=== PATIENT | female | born 1980 | race Hispanic/Latino ===

== ENCOUNTER 2019-04-09 18:44 | Observation (INO) | payer BC, OTHER ==
[~2019-04-09] VITALS: Ht 160 cm; Wt 120.2 kg
[~2019-04-09 18:44] MED LIST: APPLE CIDER VI500 MG PO; CINNAMON500 MG PO; HAWTHORN BERRY500 MG PO; HYDROCHLOROTHIAZIDE; LEXAPRO10 MG PO; LIPITOR20 MG; LISINOPRIL; METFORMIN HCL500 M2 PO; NEXIUM40 MG
[2019-04-09] MEDS ORDERED: IBUPROFEN 600 MG TAB PO STA (19:59)
--- NOTE | 2019-04-09 20:06 | Diagnostic Imaging Report ---
EXAMINATION: CHEST 2 VIEWS INDICATION: Pain and shortness of breath. COMPARISON: None FINDINGS: TUBES and LINES: None. LUNGS: Lungs are well inflated. Mild perihilar, peribronchial thickening and perihilar streaky densities may reflect viral infection versus reactive airway disease. There is no evidence of pneumonia or pulmonary edema. PLEURA: No pleural effusion or pneumothorax. HEART AND MEDIASTINUM: The cardiomediastinal silhouette is unremarkable. BONES AND SOFT TISSUES: No acute osseous lesion. Soft tissues are unremarkable. UPPER ABDOMEN: No free air under the diaphragm. IMPRESSION: Mild perihilar, peribronchial thickening and perihilar streaky densities may reflect viral infection versus reactive airway disease. Signed by: Dr. Yordy Azevedo M.D. on 04/09/2019 8:04 PM
[2019-04-09 20:30] LABS: BASOPHILS % 0.3 % (0.0-1.0); EOSINOPHILS # (AUTO) 0.5 (0.0-0.4); EOSINOPHILS % 4.3 % (0.0-6.0); HEMATOCRIT 38.8 % (34.2-44.1); HEMOGLOBIN 12.3 g/dL (12.0-16.0); LYMPHOCYTES # (AUTO) 1.6 (1.0-3.2); LYMPHOCYTES % 15.6 % (18.0-39.1); MEAN CORPUSCULAR HEMOGLOBIN 24.9 pg (28-32); MEAN CORPUSCULAR HGB CONC 31.7 g/dL (31-35); MEAN CORPUSCULAR VOLUME 78.7 fL (81-99); MONOCYTES # (AUTO) 0.8 (0.2-0.8); MONOCYTES % 7.8 % (4.4-11.3); NEUTROPHILS # (AUTO) 7.4 (2.1-6.9); NEUTROPHILS % 70.8 % (38.7-80.0); PLATELET COUNT 347 x10e3/uL (140-360); RED BLOOD COUNT 4.93 x10e6/uL (3.6-5.1); RED CELL DISTRIBUTION WIDTH 14.3 % (11.7-14.4)
[2019-04-09 20:41] LABS: CLARITY,URINE CLEAR (CLEAR); COLOR,URINE YELLOW (YELLOW); KETONES,URINE 1+ (NEGATIVE); LEUKOCYTE ESTERASE ,URINE NEGATIVE (NEGATIVE); NITRITE,URINE NEGATIVE (NEGATIVE); PROTEIN,URINE DIPSTICK NEGATIVE (NEGATIVE)
[2019-04-09 20:42] LABS: BILIRUBIN,URINE NEGATIVE (NEGATIVE); URINE UROBILINOGEN 0.2 mg/dL (0.2 - 1)
[2019-04-09 20:49] LABS: ALANINE AMINOTRANSFERASE 122 IU/L (0-55); ALBUMIN 3.7 g/dL (3.5-5.0); ALKALINE PHOSPHATASE 83 IU/L (40-150); BLOOD UREA NITROGEN 8 mg/dL (7-26); BUN/CREATININE RATIO 10 (6-25); CALCIUM 9.2 mg/dL (8.4-10.2); CARBON DIOXIDE 20 mmol/L (22-29); CHLORIDE 102 mmol/L (98-107); CREATINE KINASE 60 IU/L (29-168); CREATININE, SERUM 0.82 mg/dL (0.57-1.11); EST GLOMERULAR FILTRATION RATE > 60 ML/MIN (60-); GLUCOSE 230 mg/dL (74-118); SODIUM 135 mmol/L (136-145)
[2019-04-09 20:51] LABS: BACTERIA,URINE MANY /HPF; EPITHELIAL CELLS,URINE MANY /LPF
[2019-04-09 20:57] LABS: PREGNANCY TEST, URINE NEGATIVE (NEGATIVE)
[2019-04-09 21:03] LABS: THYROID STIMULATING HORMONE 2.555 uIU/mL (0.350-4.940)
--- NOTE | 2019-04-09 23:49 | Diagnostic Imaging Report ---
EXAM: CT Chest WITH contrast 04/09/2019 8:56 PM INDICATION: Chest pain and shortness of breath. High risk for pulmonary embolism. COMPARISON: None TECHNIQUE: Chest was scanned utilizing a multidetector helical scanner from the lung apex through the level of the adrenal glands without administration of IV contrast. Coronal and sagittal reformations were obtained. Pulmonary embolism protocol was performed. IV CONTRAST: 100 cc Isovue-300 RADIATION DOSE: Total DLP: 616.10 mGy*cm Estimated effective dose: (DLP x 0.014 x size factor) mSv COMPLICATIONS: None FINDINGS: LINES/ TUBES: None. LUNGS AND AIRWAYS: Examination somewhat limited due to beam hardening artifact. Filling defects in the posterior right lower pulmonary arteries on image 68 series 2. PLEURA: The pleural spaces are clear. HEART AND MEDIASTINUM: The thyroid gland is normal. No mediastinal, hilar or axillary lymphadenopathy. The heart is normal in size.. There is no pericardial effusion. UPPER ABDOMEN: Limited non-contrast views of the upper abdomen show hepatic steatosis. 9 mm low-attenuation nodule in the right adrenal gland. BONES: The visualized bony thorax is within normal limits. SOFT TISSUES: Unremarkable. IMPRESSION: Within limitations, findings concerning for nonocclusive thrombus in the posterior lower lobe segmental pulmonary arteries. Signed by: Dr. Yordy Aezvedo M.D. on 04/09/2019 11:47 PM
[2019-04-10] MEDS ORDERED: MORPHINE SULFATE 2 MG/ML SYR 1ML IV PRN
[2019-04-10] MEDS ORDERED: ONDANSETRON HCL INJ 2MG/ML 2ML 2 MG/ML VIAL IV PRN
[2019-04-10] MEDS ORDERED: SODIUM CHLORIDE 0.9% 1000ML 1,000 ML IV STA (00:02)
[2019-04-10] MEDS: ENOXAPARIN SODIUM INJ 100 MG/ML SYR SC SCH ×3 (01:07→21:36)
--- OUTSIDE RECORDS SUMMARY | 2019-04-10 02:03 | XMS REPORT ---
Author Author [facility] Address Unknown Phone Unavailable Care Team Providers Care Tie Knitter Helper Name Role Phone DAVIE GALDAMEZ Unavailable Unavailable Problems This patient has no known problems. Allergies, Adverse Reactions, Alerts This patient has no known allergies or adverse reactions. Medications This patient has no known medications. Results Test Description Test Time Test Comments Text Results Atomic Results Result Comments CT CHEST W 2019-04-09 23:34:00 [place] [address] Patient Name: LIZETTE BELLO MR #: [id number] : 1980 Age/Sex: 38/F Req #: [id number] Adm Physician: Ordered by: DAVIE FU MACHINE SET UP OPERATOR [employer] Report #: [id number] Location: ER Room/Bed: Procedure: [id number] CT/CT CHEST W Exam Date: 04/09/19 Exam Time: 2211 REPORT STATUS: Signed EXAM: CT Chest WITH contrast 04/09/2019 8:56 PM INDICATION: Chest pain and shortness of breath. High risk for pulmonary embolism. COMPARISON: None TECHNIQUE: Chest was scanned utilizing a multidetector helical scanner from the lung apex through the level of the adrenal glands without administration of IV contrast. Coronal and sagittal reformations were obtained. Pulmonary embolism protocol was performed. IV CONTRAST: 100 cc Isovue-300 RADIATION DOSE: Total DLP: 616.10 mGy*cm Estimated effective dose: (DLP x 0.014 x size factor) mSv COMPLICATIONS: None FINDINGS: LINES/ TUBES: None. LUNGS AND AIRWAYS: Examination somewhat limited due to beam hardening artifact. Filling defects in the posterior right lower pulmonary arteries on image 68 series 2. PLEURA: The pleural spaces are clear. HEART AND MEDIASTINUM: The thyroid gland is normal. No mediastinal, hilar or axillary lymphadenopathy. The heart is normal in size.. There is no pericardial effusion. UPPER ABDOMEN: Limited non-contrast views of the upper abdomen show hepatic steatosis. 9 mm low-attenuation nodule in the right adrenal gland. BONES: The visualized bony thorax is within normal limits. SOFT TISSUES: Unremarkable. IMPRESSION: Within limitations, findings concerning for nonocclusive thrombus in the posterior lower lobe segmental pulmonary arteries. Signed by: Dr. Yordy Brenner M.D. on 04/09/2019 11:47 PM Dictated By: ARYA BRENNER MD, MD 46 Transcribed By: GINETTE on 04/09/192346 COPY TO: DAVIE FU MACHINE SET UP OPERATOR [employer] CHEST 2 VIEWS 2019-04-09 20:03:00 [place] [address] Patient Name: LIZETTE BELLO MR #: [id number] : 1980 Age/Sex: 38/F Req #: [id number] Adm Physician: Ordered by: DAVIE FU MACHINE SET UP OPERATOR [employer] Report #: [id number] Location: ER Room/Bed: Procedure: [id number] DX/CHEST 2 VIEWS Exam Date: 04/09/19 Exam Time: 1911 REPORT STATUS: Signed EXAMINATION: CHEST 2 VIEWS INDICATION: Pain and shortness of breath. COMPARISON: None FINDINGS: TUBES and LINES: None. LUNGS: Lungs are well inflated. Mild perihilar, peribronchial thickening and perihilar streaky densities may reflect viral infection versus reactive airway disease. There is no evidence of pneumonia or pulmonary edema. PLEURA: No pleural effusion or pneumothorax. HEART AND MEDIASTINUM: The cardiomediastinal silhouette is unremarkable. BONES AND SOFT TISSUES: No acute osseous lesion. Soft tissues are unremarkable. UPPER ABDOMEN: No free air under the diaphragm. IMPRESSION: Mild perihilar, peribronchial thickening and perihilar streaky densities may reflect viral infection versus reactive airway disease. Signed by: Dr. Yordy Brenner M.D. on 04/09/2019 8:04 PM Dictated By: ARYA BRENNER MD, MD 03 Transcribed By: GINETTE on 04/09/192003 COPY TO: DAVIE FU NP
[2019-04-10] MEDS ORDERED: IOPAMIDOL 370 MG/ML 200 ML INFUS..BTL INJ ONE (03:16)
[2019-04-10] MEDS ORDERED: SODIUM CHLORIDE 0.9% 50ML 50 ML ONE (03:16)
[2019-04-10 06:04] LABS: CREATINE KINASE 39 IU/L (29-168)
--- NOTE | 2019-04-10 06:43 | NUR ---
report given to pinky gallo
[2019-04-10] MEDS ORDERED: SIMVASTATIN10 MG PO (06:49)
[2019-04-10] MEDS ORDERED: LISINOPRIL10 MG PO (06:49)
[2019-04-10] MEDS ORDERED: BACTRIM DS TAB1 EACH PO (06:49)
[2019-04-10] MEDS ORDERED: XIGDUO XR 5 MG1 EAC1 PO (06:49)
[2019-04-10] MEDS ORDERED: ONDANSETRON PO (06:49)
[2019-04-10] MEDS ORDERED: OMEPRAZOLE40 MG PO (06:49)
[2019-04-10] MEDS ORDERED: DEXTROSE 50% SYRINGE 50 ML IV PRN (07:00)
[2019-04-10] MEDS: INSULIN REGULAR, HUMAN 100 UNIT/1 ML 3ML VIAL SQ SCH ×4 (07:00→21:37)
[2019-04-10] MEDS ORDERED: ACETAMINOPHEN/CODEINE 300MG - 30MG TAB PO PRN (07:45)
[2019-04-10] MEDS ORDERED: HYDRALAZINE HCL 20 MG/ML VIAL IV PRN (07:45)
[2019-04-10] MEDS ORDERED: ACETAMINOPHEN 325 MG TAB PO PRN (07:45)
--- NOTE | 2019-04-10 08:20 | NUR ---
RAFAELA SHEIKH N.P. AT BEDSIDE EVALUATING PATIENT
[2019-04-10] MEDS ORDERED: FLUCONAZOLE 100 MG TAB PO NR (08:30)
[2019-04-10] MEDS: LISINOPRIL 20 MG TAB PO SCH (08:30)
[2019-04-10] MEDS: CEFTRIAXONE SOD 1 GM/NS 50 ML 50 ML IV SCH (08:30)
--- NOTE | 2019-04-10 12:50 | NUR ---
DR. LE AT BEDSIDE EVALUATING PATIENT
[2019-04-10] MEDS ORDERED: MORPHINE SULFATE INJ 4 MG/ML INJ 1ML IV PRN (14:00)
--- NOTE | 2019-04-10 14:59 | NUR ---
RN PLASTIC SURGERY AT BEDSIDE
[2019-04-10 15:48] LABS: CREATINE KINASE 44 IU/L (29-168)
--- NOTE | 2019-04-10 16:02 | NUR ---
RCD PT FROM ER BY BED PT IS ALERT AND ORIENTED PT RESTING ON BED NO SIGNS OF ANY DISTRESS NOTED VITALS CHECKED IV PATENT BY SALINE FLUSH ADMISSION ASSESSMENT AND HISTORY DONE FAMILY AT BED SIDE INSTRUCTED THE PT AND FAMILY REGARDING HOSPITAL POLICY AND ROUTINE BED LOW AND LOCKED CALL LIGHT IN REACH
[2019-04-10 16:37] VITALS: BP 98/71
[2019-04-10 16:49] VITALS: BP 98/71
[2019-04-10 17:09] VITALS: BP 98/71
--- NOTE | 2019-04-10 17:44 | Consultation ---
DATE OF CONSULTATION: 04/10/2019 Pulmonary Critical Care Consultation CHIEF COMPLAINT: Palpitations and dyspnea. HISTORY OF PRESENT ILLNESS: The patient is a 38-year-old woman. She reports no prior history of asthma, lung disease, or heart disease. On Thursday, 2 days ago, she developed rather sudden difficulty breathing when she was getting out of the shower. She also noted some fast heart rate. She denied any chest pain. She did not have any cough or fevers. She came to the ER, initially had a heart rate of about 110. Her EKG showed sinus tachycardia, but a CT scan showed a questionable nonocclusive pulmonary embolism in the right lower lobe. PAST SURGICAL HISTORY: No recent surgeries. PAST MEDICAL HISTORY: 1. Diabetes that does not require insulin. 2. Hypercholesterolemia. SOCIAL HISTORY: The patient is not an active drinker. She has been a smoker in the past. FAMILY HISTORY: Family history is noncontributory. REVIEW OF SYSTEMS: She has no headache. She has no neck pain. She has no throat pain. She has no chest pain. She did have some dyspnea. She had some palpitations. She had no abdominal pain. She had no nausea or vomiting. She had no leg edema. PHYSICAL EXAMINATION: VITAL SIGNS: The patient is afebrile. The heart rate is 110 initially, but is now 71. HEENT: Shows no facial swelling or erythema. CARDIAC: Reveals a regular rate and rhythm with normal S1 and S2. LUNGS: Auscultation of lungs reveals clear breath sounds bilaterally. There is no wheezing. ABDOMEN: Soft and nontender. There is no rebound or guarding. EXTREMITIES: Shows no leg edema or calf tenderness. There is no cyanosis or clubbing. SKIN: Shows no rashes. NEUROLOGICAL: Shows no focal abnormalities. IMPRESSION: 1. Small lobar pulmonary embolism with no right ventricular strain or hemodynamic compromise. 2. Diabetes that does not require insulin. PLAN: 1. The patient has a small pulmonary embolism without any hemodynamic compromise. She is a candidate for outpatient therapy. 2. She should receive Eliquis 10 mg twice a day for a week followed by Eliquis 5 mg twice a day for an additional 3 to 6 months. 3. The patient should have a hypercoagulability workup as an outpatient. 4. Smoking cessation. 5. Avoid any oral contraceptives. MD [place] Thompson/STEPH /[id number]
--- NOTE | 2019-04-10 18:47 | NUR ---
PT RESTING ON BED BED SIDE REPORT GIVEN TO ONCOMING NURSE
[2019-04-10 20:00] VITALS: BP 90/53
[2019-04-10] MEDS ORDERED: SIMVASTATIN 20 MG TAB PO SCH (21:00)
[2019-04-10] MEDS ORDERED: NON-FORMULARY MEDICATION (Simvastatin 10 MG) PO SCH (21:00)
[2019-04-10 21:27] VITALS: BP 90/55
[2019-04-11] VITALS: BP 109/74
[2019-04-11 04:00] VITALS: BP 109/74
[2019-04-11 05:58] LABS: BASOPHILS # (AUTO) 0.1 (0.0-0.1); BASOPHILS % 0.5 % (0.0-1.0); EOSINOPHILS # (AUTO) 0.5 (0.0-0.4); EOSINOPHILS % 4.3 % (0.0-6.0); HEMATOCRIT 37.8 % (34.2-44.1); HEMOGLOBIN 11.9 g/dL (12.0-16.0); LYMPHOCYTES # (AUTO) 4.3 (1.0-3.2); LYMPHOCYTES % 40.5 % (18.0-39.1); MEAN CORPUSCULAR HEMOGLOBIN 24.7 pg (28-32); MEAN CORPUSCULAR HGB CONC 31.5 g/dL (31-35); MEAN CORPUSCULAR VOLUME 78.6 fL (81-99); MONOCYTES # (AUTO) 0.8 (0.2-0.8); MONOCYTES % 7.4 % (4.4-11.3); NEUTROPHILS # (AUTO) 4.9 (2.1-6.9); NEUTROPHILS % 45.7 % (38.7-80.0); PLATELET COUNT 328 x10e3/uL (140-360); RED BLOOD COUNT 4.81 x10e6/uL (3.6-5.1); RED CELL DISTRIBUTION WIDTH 14.3 % (11.7-14.4)
[2019-04-11 06:04] LABS: ANION GAP 17.1 mmol/L (8-16); BLOOD UREA NITROGEN 7 mg/dL (7-26); BUN/CREATININE RATIO 11 (6-25); CARBON DIOXIDE 19 mmol/L (22-29); CHLORIDE 104 mmol/L (98-107); CREATININE, SERUM 0.65 mg/dL (0.57-1.11); EST GLOMERULAR FILTRATION RATE > 60 ML/MIN (60-); GLUCOSE 162 mg/dL (74-118); MAGNESIUM 1.8 MG/DL (1.3-2.1); POTASSIUM 4.1 mmol/L (3.5-5.1); SODIUM 136 mmol/L (136-145)
[2019-04-11 07:55] VITALS: BP 94/62
[2019-04-11] MEDS ORDERED: CLOTRIMAZOLE 45 GM VG SCH (08:00)
[2019-04-11] MEDS ORDERED: FLUCONAZOLE 400MG/200ML BAG 200 ML IV SCH (08:00)
[2019-04-11 08:27] LABS: LYMPHOCYTES % (MANUAL) 31 % (19-48); MONOCYTES % (MANUAL) 14 % (3.4-9.0); NEUTROPHILS % (MANUAL) 55 % (40-74)
[2019-04-11 08:28] LABS: PLATELET ESTIMATE ADEQUATE; PLATELET MORPHOLOGY COMMENT NORMAL; RBC MORPHOLOGY COMMENT NORMAL
[2019-04-11] MEDS: INSULIN REGULAR, HUMAN 100 UNIT/1 ML 3ML VIAL SQ SCH ×2 (08:36→11:38)
[2019-04-11] MEDS: LISINOPRIL 20 MG TAB PO SCH (08:36)
[2019-04-11 08:41] VITALS: BP 94/62
[2019-04-11] MEDS ORDERED: APIXABAN 5 MG TABLET PO SCH (09:00)
[2019-04-11] MEDS: CEFTRIAXONE SOD 1 GM/NS 50 ML 50 ML IV SCH (09:20)
[2019-04-11] MEDS ORDERED: SODIUM CHLORIDE 0.9% 250ML 250 ML ONE (09:26)
[2019-04-11] MEDS ORDERED: ONDANSETRON HCL 4 MG ORAL DISINTEGRATING TAB PO PRN (09:30)
[2019-04-11 11:33] VITALS: BP 109/71
[2019-04-11] MEDS ORDERED: ELIQUIS5 MG PO ×2 (12:06→12:08)
--- NOTE | 2019-04-11 12:30 | NUR ---
DC instructions and prescriptions were given to the pt. She verbalized understanding. Pt has follow up appointment already scheduled with dr Fall. IV was removed from left arm with tip intact. Pt is discharged home in stable condition.
--- NOTE | 2019-04-11 12:58 | NUR ---
Discontinuing skilled physical therapy services since patient is independent in functional mobility. Thank you. Addendum: 04/11/19 at 1259 by Juanjo nolan PT Amended: Links added.
--- NOTE | 2019-04-12 08:02 | Discharge Summary ---
ADMISSION DIAGNOSES: Pulmonary embolism, type 2 diabetes, hypertension, hyperlipidemia, morbid obesity with a BMI of 46.3, urinary tract infection, present on admission. DISCHARGE DIAGNOSES: Pulmonary embolism, type 2 diabetes, hypertension, hyperlipidemia, morbid obesity with a BMI of 46.3, urinary tract infection, present on admission, urinary tract infection ruled out. HISTORY: Type 2 diabetes, hypertension, hyperlipidemia, GERD. SURGICAL HISTORY: Cholecystectomy, tonsillectomy, x2. FAMILY HISTORY: The patient's grandfather had cancer. The patient also has limited paternal history. SOCIAL HISTORY: The patient admits to smoking half pack of cigarettes a day. HOSPITAL COURSE: A 38-year-old female admits with complaints of shortness of breath that began on Thursday after getting out of the shower. Since Thursday, she noticed that her heart rate was up in the 120s and she got lightheaded. She tested positive for the flu on 04/07, so she assumed it was that initially. She denies chest pain. On admission, CT of the chest was done, which showed findings concerning for nonocclusive thrombus in the posterior lower lobe segmental pulmonary arteries. The patient was started on Lovenox 100 mg q.12. Both Pulmonology and Hematology were consulted. UA was positive for wbc and bacteria, but the culture came back contaminated. The patient will discharge home with new prescriptions for Eliquis per Hematology recommendation. The patient understands discharge instructions and agreed to plan. She will follow up with Pulmonology and Hematology in 1 to 2 weeks as well as primary care. Vital signs stable, the patient afebrile. Dictated by Kimberly Aquino NP MD SANCHO Harris/MODL /[id number]
[2019-04-12] MEDS ORDERED: FLUCONAZOLE 200 MG/100 ML 100 ML IV SCH (09:00)
--- NOTE | 2019-04-12 12:29 | Consultation ---
DATE OF CONSULTATION: 04/11/2019 REASON FOR CONSULTATION: New onset of pulmonary embolism. HISTORY OF PRESENT ILLNESS: She is a 38-year-old with elevated BMI, history of hyperglycemia and hyperlipidemia, smoker, admitted through emergency with shortness of breath, fatigue, and tiredness. She is also complaining of palpitation. She denies any chest pain, fever, or cough. Workup showed right lower lobe nonocclusive pulmonary embolism. She is currently on Lovenox. She denies any prior history of blood clots. No family history of blood clot. No recent procedure. No recent traveling. Besides smoking, no high risk. Clinical condition has improved. She is tolerating Lovenox very well. PAST MEDICAL HISTORY: Hyperglycemia and hyperlipidemia. SOCIAL HISTORY: Smoker. No alcohol or drugs. FAMILY HISTORY: Reviewed, noncontributory. REVIEW OF SYSTEMS: Twelve-point review as per HPI. PHYSICAL EXAMINATION: GENERAL: Alert, awake, communicative, not in acute distress. HEENT: Normocephalic and atraumatic. Sclerae pale. Conjunctivae clear. NECK: Supple. CHEST: Decreased breath sounds at the bases. CARDIOVASCULAR: Regular rate and rhythm. EXTREMITIES: No edema. OPERATING ROOM NURSE: Grossly intact. SKIN: Intact. PSYCHIATRIC: Normal mood. LABS AND IMAGING: Reviewed. ASSESSMENT AND PLAN: The patient with history of hyperlipidemia and hyperglycemia, currently in hospital with new onset of shortness of breath and palpitation. She was diagnosed with nonocclusive right lower lobe pulmonary embolism. She is currently started on Lovenox. The patient will need at least 3-6 months of anticoagulation treatment. We will switch from Lovenox to Eliquis 10 mg twice a day for five days and continue with 5 mg twice a day remaining. Hypercoagulable as outpatient. Discussed about smoking cessation. Discussed about low-fat diet. Continue remaining care. We will monitor the patient very closely. The patient can be discharged and follow as outpatient. Salazar Fall MD AR/MODL /[id number]
== END 2019-04-11 13:11 | disposition home or self-care (01) ==
LOC: ER 18:44 → INTOOBSV 04-10 00:02 → ERHOLD 04-10 00:02 → MED/SURG2 04-10 16:11
PROVIDERS: ADMIT Internal Medicine; ATTEND Internal Medicine
DX: I26.99 Other pulmonary embolism without acute cor pulmonale (principal); E11.9 Type 2 diabetes mellitus without complications; I10 Essential (primary) hypertension; E78.5 Hyperlipidemia, unspecified; K21.9 Gastro-esophageal reflux disease without esophagitis; F17.200 Nicotine dependence, unspecified, uncomplicated; E66.01 Morbid (severe) obesity due to excess calories; Z68.42 Body mass index [BMI] 45.0-49.9, adult; E78.00 Pure hypercholesterolemia, unspecified; Z80.9 Family history of malignant neoplasm, unspecified
CPT/HCPCS: 36415 ×3; 71046; 71260; 80048; 80053; 81001; 81025; 82550 ×2; 82553 ×2; 82948 ×2; 83036; 83735; 83880; 84443; 84484 ×2; 85025 ×2; 85379; 87086; 93005; 93306; 97161; 99284; G0378 ×2; J0696 ×2; J1450 ×2; J1650; J1817; J7030; J7050; Q9967

== ENCOUNTER 2022-06-28 16:53 | Emergency (ER) | payer BC, OTHER ==
[~2022-06-28] VITALS: Ht 160 cm; Wt 120.2 kg
[~2022-06-28 16:53] MED LIST changes: +BACTRIM DS TAB1 EACH PO; +ELIQUIS5 MG PO; +LISINOPRIL10 MG PO; +OMEPRAZOLE40 MG PO; +ONDANSETRON PO; +SIMVASTATIN10 MG PO; +XIGDUO XR 5 MG1 EAC1 PO
[2022-06-28 18:21] LABS: BASOPHILS # (AUTO) 0.1 (0.0-0.1); BASOPHILS % 0.8 % (0.0-1.0); EOSINOPHILS # (AUTO) 0.2 (0.0-0.4); EOSINOPHILS % 1.3 % (0.0-6.0); HEMATOCRIT 42.3 % (34.2-44.1); HEMOGLOBIN 13.4 g/dL (12.0-16.0); LYMPHOCYTES # (AUTO) 4.3 (1.0-3.2); MEAN CORPUSCULAR HEMOGLOBIN 26.8 pg (28-32); MEAN CORPUSCULAR HGB CONC 31.7 g/dL (31-35); MEAN CORPUSCULAR VOLUME 84.6 fL (81-99); MONOCYTES # (AUTO) 1.2 (0.2-0.8); MONOCYTES % 7.4 % (4.4-11.3); NEUTROPHILS # (AUTO) 9.9 (2.1-6.9); NEUTROPHILS % 62.7 % (38.7-80.0); PLATELET COUNT 437 x10e3/uL (140-360); RED CELL DISTRIBUTION WIDTH 12.8 % (11.7-14.4)
[2022-06-28] MEDS ORDERED: SODIUM CHLORIDE 0.9% 1000ML 1,000 ML IV STA ×2 (18:31→19:22)
[2022-06-28 18:39] LABS: CLARITY,URINE CLEAR (CLEAR); COLOR,URINE YELLOW (YELLOW); KETONES,URINE 1+ (NEGATIVE); LEUKOCYTE ESTERASE ,URINE NEGATIVE (NEGATIVE); NITRITE,URINE NEGATIVE (NEGATIVE); PROTEIN,URINE DIPSTICK NEGATIVE (NEGATIVE); URINE UROBILINOGEN 1 mg/dL (0.2 - 1)
[2022-06-28 18:44] LABS: ALBUMIN 4.2 g/dL (3.5-5.0); ALBUMIN/GLOBULIN RATIO 1.2 (0.8-2.0); ANION GAP 18.1 mmol/L (8-16); CALCIUM 9.9 mg/dL (8.4-10.2); CREATININE, SERUM 0.78 mg/dL (0.57-1.11); POTASSIUM 4.1 mmol/L (3.5-5.1)
[2022-06-28 19:19] LABS: BACTERIA,URINE MODERATE /HPF; EPITHELIAL CELLS,URINE MANY /LPF
[2022-06-28 19:20] LABS: RBC,URINE 0-5 /HPF (0-5); WBC,URINE (MAN) 0-5 /HPF (0-5)
[2022-06-28] MEDS ORDERED: ONDANSETRON HCL INJ 2MG/ML 2ML 2 MG/ML VIAL IV STA ×2 (19:20→19:22)
[2022-06-28] MEDS ORDERED: IOPAMIDOL 370 MG/ML 100 ML INFUS..BTL INJ ONE (19:20)
[2022-06-28] MEDS ORDERED: FAMOTIDINE 20 MG/2 ML VIAL IV STA ×2 (19:20→19:22)
[2022-06-28] MEDS ORDERED: AUGMENTIN 500-1 EACH PO (20:24)
[2022-06-28] MEDS ORDERED: ANTI-DIARRHEAL2 M1 PO (20:24)
[2022-06-28] MEDS ORDERED: ONDANSETRON ODT4 MG PO (20:24)
[2022-06-28 20:39] VITALS: BP 111/79
== END 2022-06-28 20:41 | disposition home or self-care (01) ==
LOC: ER 17:09
DX: R10.33 Periumbilical pain (principal); R19.7 Diarrhea, unspecified; I10 Essential (primary) hypertension; E11.9 Type 2 diabetes mellitus without complications; E78.5 Hyperlipidemia, unspecified; K21.9 Gastro-esophageal reflux disease without esophagitis
CPT/HCPCS: 36415; 74177; 80053; 81001; 81025; 83690; 85025; 99284; J2405; J7030; Q9967